=== PATIENT | female | born 1960 | race Hispanic/Latino ===

== ENCOUNTER 2017-08-15 10:10 | Outpatient (CLI) | payer MEDICAID ==
[2017-08-15 11:17] LABS: Blood Urea Nitrogen 23 mg/dL (7-17)
--- NOTE | 2017-08-16 08:35 | Cat Scan Report ---
CT ABDOMEN PELVIS WITH AND WITHOUT CONTRAST: HISTORY: Abdominal pain, generalized enlarged lymph nodes. COMPARISON: none. TECHNIQUE: Helical CT in 1.25mm intervals before and after IV contrast. Sagittal and coronal reconstructions. FINDINGS: Lung bases: Well aerated. No parenchymal disease, infiltration or effusion. 5 mm well marginated subpleural nodule in the posterolateral left lower lobe is noted. This has a benign appearance, consider followup. Liver: Within normal limits. 1 cm cavernous hemangioma in the right lower lobe is noted. Biliary system: Normal. Pancreas: Normal. Spleen: Normal. Kidneys/ureters/bladder: Normal. Adrenal glands: Normal. Aorta: Mild aortic calcifications are noted without aneurysm or dissection. Intestines: Normal. Appendix: Normal. Pelvic viscera: Hysterectomy changes are suspected, the ovaries are unremarkable. Ascites: None. Adenopathy: None. No lymphadenopathy or suspicious mass identified. Musculoskeletal: Normal. IMPRESSION: Essentially unremarkable CT the abdomen and pelvis. No pathologic lymphadenopathy is detected. Benign-appearing subpleural nodule at the left lung base. Hysterectomy.
== END 2017-08-15 10:11 | disposition home or self-care (01) ==
LOC: CT 10:10
PROVIDERS: ATTEND Internal Medicine Hematology & Oncology
DX: R59.1 Generalized enlarged lymph nodes (principal); R91.1 Solitary pulmonary nodule; D18.09 Hemangioma of other sites; I70.0 Atherosclerosis of aorta; I10 Essential (primary) hypertension; E11.9 Type 2 diabetes mellitus without complications; Z90.710 Acquired absence of both cervix and uterus
CPT/HCPCS: 36415; 74178; 82565; 84520; Q9967